=== PATIENT | female | born 1965 | race Caucasian/White ===

== ENCOUNTER 2018-06-07 10:20 | Outpatient (CLI) | payer OTHER ==
[~2018-06-07 10:20] MED LIST: Iopamidol 370 76% 100 ML VIAL ONE
--- NOTE | 2018-06-07 13:09 | CT ---
CT ABDOMEN AND PELVIS WITH ORAL AND IV CONTRAST: HISTORY: A 52-year-old female with right upper quadrant pain. Crohn's disease. Small bowel resection x 2, ap pendectomy, and cholecystitis. COMPARISON: None. FINDINGS: The lung bases are clear. There are postop changes of cholecystectomy, appendectomy, and probably hy sterectomy. The liver, pancreas, spleen, adrenal glands, and left kidney are normal. There is a tin y nonobstructing calculus in the right kidney. There are a couple of small low-density lesions in th e right kidney, likely cysts. No free air, free fluid, or lymphadenopathy is seen in the abdomen or pelvis. The small bowel loops are not abnormally dilated. No small bowel wall thickening is seen. There are degenerative changes in the spine. No aneurysmal dilatation of the abdominal aorta is seen. A few sigmoid diverticula ar e present. IMPRESSION: No acute process. POS: [facility]
== END 2018-06-07 10:21 | disposition home or self-care (01) ==
LOC: SCSCT 10:20
PROVIDERS: ATTEND Internal Medicine Gastroenterology
DX: R10.11 Right upper quadrant pain (principal); K50.00 Crohn's disease of small intestine without complications
CPT/HCPCS: 74177

== ENCOUNTER 2019-02-09 10:26 | Outpatient (CLI) | payer OTHER ==
--- NOTE | 2019-03-09 16:17 | MMO ---
Bilateral MAMMO Bilat Screen [facility]DI. CLINICAL HISTORY: Patient is 53 years old and is seen for screening. The patient has the following family history of breast cancer: maternal grandmother, malignant (generic); sister, at age 42 and maternal aunt. The patient has no personal history of cancer. VIEWS: The views performed were: bilateral craniocaudal and bilateral mediolateral oblique. This study has been interpreted with the assistance of computer-aided detection. MAMMOGRAM FINDINGS: There are scattered fibroglandular densities. There are no suspicious masses, suspicious calcifications, or new areas of architectural distortion. IMPRESSION: THERE IS NO MAMMOGRAPHIC EVIDENCE OF MALIGNANCY. A ROUTINE FOLLOW-UP MAMMOGRAM IN 1 YEAR IS RECOMMENDED. ACR BI-RADS Category 1 - Negative MAMMOGRAPHY NOTE: 1. A negative mammogram report should not delay a biopsy if a dominant of clinically suspicious mass is present. 2. Approximately 10% to 15% of breast cancers are not detected by mammography. 3. Adenosis and dense breasts may obscure an underlying neoplasm. Reported by: DARREL DIA MD Electonically Signed: [id number]
== END 2019-02-09 10:27 | disposition home or self-care (01) ==
LOC: SCSMAMMO 10:26
PROVIDERS: ATTEND Family Medicine
DX: Z12.31 Encounter for screening mammogram for malignant neoplasm of breast (principal); Z80.3 Family history of malignant neoplasm of breast
CPT/HCPCS: 77067

== ENCOUNTER 2019-04-28 13:56 | Outpatient (CLI) | payer BC ==
--- NOTE | 2019-04-28 14:57 | CT ---
CT Stone Protocol 04/28/2019 12:00 AM HISTORY: Chronic right upper quadrant abdominal pain. Surgical history includes hysterectomy, cholecystectomy, and appendectomy as well as bowel resection. History of kidney stones. COMPARISON: 06/07/2018 Technique: Multiple contiguous axial CT images are obtained through the abdomen and pelvis without IV contrast. Coronal reformats are provided. FINDINGS: This examination is limited for the evaluation of solid organs and vascular structures due to the lac k of intravenous contrast. Lower Chest: Linear atelectasis versus scarring at the right lung base. Lung bases are otherwise carrillo r. Abdomen: Liver: Stable small hypodense subcentimeter lesion in the lateral segment left hepatic lobe biliary s tatistically likely representing a small cyst. Gallbladder: Surgically absent. Pancreas: Grossly normal nonenhanced CT appearance. Spleen: Grossly normal nonenhanced CT appearance. Adrenals: Grossly normal nonenhanced CT appearance. Kidneys: Approximately 2 mm nonobstructing calculus midportion right kidney. No left renal calculus i s seen, and there is no hydronephrosis. Subcentimeter too small to characterize exophytic hypodense lesion midportion right kidney is again present. Ureters: No ureteral calculus is seen.. Pelvis: Urinary bladder: within normal limits. Reproductive Organs: Evidence of hysterectomy. Lymph Nodes: No enlarged lymph nodes. Bowel: Loops of small bowel are normal in caliber. Appendix: Not visualized. Suture material is seen at the cecal apex likely attributable to patient's history of prior appendectomy. Peritoneum: No free fluid, free air, or fluid collection. Retroperitoneum: within normal limits. Vessels: Abdominal aorta is normal in caliber.. Abdominal Wall: Tiny fat-containing umbilical hernia. Bones: Mild degenerative changes are seen in the spine. IMPRESSION: 1. Tiny nonobstructing right renal calculus. 2. Postsurgical changes related to hysterectomy, appendectomy, and cholecystectomy. 3. Subcentimeter difficult to characterize hypodense lesion lateral segment left hepatic lobe stable from prior study and statistically likely represents a cyst. 4. No acute findings are seen in the abdomen or pelvis.
== END 2019-04-28 13:57 | disposition home or self-care (01) ==
LOC: SCSCT 13:56
PROVIDERS: ATTEND Physician Assistant Medical
DX: R10.11 Right upper quadrant pain (principal); G89.29 Other chronic pain; N20.0 Calculus of kidney; K76.9 Liver disease, unspecified; Z90.49 Acquired absence of other specified parts of digestive tract; Z90.710 Acquired absence of both cervix and uterus
CPT/HCPCS: 74176; 87480; 87510; 87660